=== PATIENT | female | born 1975 | race Caucasian/White ===

== ENCOUNTER 2017-08-29 13:03 | Emergency (ER) | payer OTHER | END 2017-08-29 17:04 | disposition home or self-care (01) | LOC: FTE 13:03 | DX: A49.9 Bacterial infection, unspecified (principal); R05 Cough | CPT/HCPCS: 99284; Z7502 ==

== ENCOUNTER 2017-09-18 12:03 | Emergency (ER) | payer OTHER | END 2017-09-18 12:22 | disposition home or self-care (01) | LOC: E/R 12:03 | DX: M54.5 Low back pain (principal) | CPT/HCPCS: 99283; Z7502 ==

== ENCOUNTER 2018-05-09 15:59 | Emergency (ER) | payer OTHER ==
[2018-05-09] MEDS: ALBUTEROL 0.5% (NEB) 2.5 MG/0.5 ML AMP INH (17:17)
[2018-05-09] MEDS: predniSONE 20 MG TAB PO (17:46)
== END 2018-05-09 19:19 | disposition home or self-care (01) ==
LOC: E/R 15:59
DX: J45.30 Mild persistent asthma, uncomplicated (principal); J40 Bronchitis, not specified as acute or chronic
CPT/HCPCS: 93005; 94644; 99283-25

== ENCOUNTER 2019-01-02 12:14 | Emergency (ER) | payer OTHER | END 2019-01-02 13:36 | disposition home or self-care (01) | LOC: E/R 12:14 | DX: R05 Cough (principal) | CPT/HCPCS: 99283; Z7502 ==